=== PATIENT | female | born 1980 ===

== ENCOUNTER 2021-05-25 16:18 | Emergency (ER) | payer SELFPAY ==
[2021-05-25 16:20] VITALS: BP 120/101; PULSE 87; RESP 16; TEMP 36.6; O2SAT 99; BMI 24.0
--- NOTE | 2021-05-25 16:37 | ED.RN ---
pt was in discord with her significant other in [place]. She wanted him to stay and get treatment as well. The went in room to discuss, He came out and few minutes later patient walked out. Was not seen by
--- NOTE | 2021-05-25 16:39 | EX.ED.SAOD ---
HPI History of Present Illness Chief Complaint: Substance Abuse Narrative Narrative: Patient initially presented requesting detox from heroin. Patient left prior to me getting in the room. She was here less than 20 minutes. PFSH PFSH Allergy/AdvReac Type Severity Reaction Status Date / Time No Known Allergies Allergy Verified 05/25/21 16:21 EXAM Physical Exam Const Vital Signs: 05/25/21 16:20 Temperature 97.8 F Temperature Source Temporal Pulse Rate 87 Respiratory Rate 16 Blood Pressure 120/101 H Blood Pressure Mean 107 Pulse Ox 99 Oxygen Delivery Method Room Air MDM MDM MDM Narrative Medical decision making narrative: Patient left prior to being evaluated or treated. Discharge Plan Triage Chief Complaint: Substance Abuse ED Provider: Nakul Conner Disposition Disposition: LEFT WITHOUT BEING SEEN
== END 2021-05-25 16:43 | disposition left against medical advice (07) ==
LOC: ED 16:43
PROVIDERS: Emergency Provider Emergency Medicine
DX: F11.10 Opioid abuse, uncomplicated (principal); Z53.21 Procedure and treatment not carried out due to patient leaving prior to being seen by health care provider